=== PATIENT | male | born 1980 | race Caucasian/White ===

== ENCOUNTER 2019-08-20 15:33 | Observation (INO) ==
[2019-08-20] MEDS ORDERED: *HR* LORazepam 2 MG/ML VIAL IM ONE ×2 (15:54→17:16)
[2019-08-20 16:21] LABS: Basophils % 0.3 %; Eosinophils # 0.1 K/mcL (0.0-0.6); Eosinophils % 0.7 %; Hematocrit 42.4 % (37.5-50.1); Hemoglobin 14.8 g/dL (12.9-16.9); Immature Granulocytes % 0.2 % (0-4); Lymphocytes # 2.2 K/mcL (0.6-4.6); Lymphocytes % 24.7 %; Mean Corpuscular HGB Conc 34.9 g/dL (31.6-35.5); Mean Corpuscular Volume 91.8 fL (83.0-100.0); Mean Platelet Volume 9.3 fL (9.4-12.4); Monocytes % 11.9 %; Neutrophils # 5.4 K/mcL (1.6-8.9); Platelet Count 228 K/mcL (140-400); Red Blood Count 4.62 M/mcL (4.19-5.50); Red Cell Distribution Width 12.6 % (11.5-14.5); Segmented Neutrophils % 62.2 %; White Blood Count 8.7 K/mcL (4.3-11.1)
[2019-08-20 16:34] LABS: Acetaminophen < 10 mcg/mL (10-20); BUN/Creatinine Ratio 17 (6-26); Blood Urea Nitrogen 15 mg/dL (6-20); Calcium 9.7 mg/dL (8.6-10.3); Carbon Dioxide 24 mEq/L (23-29); Chloride 103 mEq/L (98-107); Ethanol < 10 mg/dL (Less than 10); Glucose 113 mg/dL (70-105); Osmolality,Calculated 286 (280-300); Potassium 3.2 mEq/L (3.5-5.1); Salicylate < 2.5 mg/dL (15.0-30.0); Sodium 137 mEq/L (136-145); eGFR For African Americans > 60 (> 60); eGFR For Non-African Americans > 60 (> 60)
[2019-08-20 17:34] LABS: Bilirubin,Urine Small (Negative); Blood,Urine Negative (Negative); Clarity,Urine Clear (Clear); Color,Urine Yellow (Yellow); Glucose,Urine (UA) Normal (Normal); Ketones,Urine 15 mg/dL (Negative); Leukocyte Esterase,Urine Small (Negative); Nitrite,Urine Negative (Negative); Protein,Urine 30 mg/dL (Neg-Trace); Specific Gravity,Urine > 1.030 (1.010-1.025)
[2019-08-20 17:37] LABS: Bacteria,Urine None Seen per hpf (None-Few); Hyaline Casts,Urine None Seen per lpf (None-Few); RBC,Urine 0-3 per hpf (0-3); Squamous Epithelial Cell,Urine Moderate per lpf (None-Few)
[2019-08-20 17:42] LABS: Amphetamine Screen,Urine Positive ng/mL (Cutoff=1000); Barbiturate Screen,Urine Negative ng/mL (Cutoff=200); Benzodiazepines Screen,Urine Negative ng/mL (Cutoff=200); Cannabinoid Screen,Urine Positive ng/mL (Cutoff = 50); Cocaine Screen,Urine Negative ng/mL (Cutoff= 300); Opiate Screen,Urine Negative ng/mL (Cutoff=300); Phencyclidine Screen,Urine Negative ng/mL (Cutoff=25)
[2019-08-20] MEDS ORDERED: hydrOXYzine pamoate 25 MG CAPSULE PO PRN (23:28)
[2019-08-20] MEDS ORDERED: QUEtiapine Fumarate 25 MG TABLET PO PRN (23:28)
[2019-08-20] MEDS ORDERED: Ibuprofen 400 MG TABLET PO PRN (23:28)
[2019-08-20] MEDS ORDERED: MOM Conc 10 ML UD.LIQ PO PRN (23:28)
[2019-08-20] MEDS ORDERED: *HR* LORazepam 1 MG TABLET PO PRN (23:28)
[2019-08-20] MEDS ORDERED: Mag Hydrox/Al Hydrox/Simeth 30 ML UDC PO PRN (23:28)
[2019-08-20] MEDS ORDERED: haloperidoL 5 MG TABLET PO PRN (23:28)
[2019-08-20] MEDS ORDERED: Haloperidol Lactate 5 MG/ML VIAL IM PRN (23:28)
[2019-08-20] MEDS ORDERED: *HR* LORazepam 2 MG/ML VIAL IM PRN (23:28)
[2019-08-21 10:13] VITALS: BP 117/77
== END 2019-08-21 11:15 | disposition home or self-care (01) ==
LOC: EMEROOARM 15:33 → 1ANU 23:20 → INTOOBSV 23:20 → 1ANU 08-21 00:30
PROVIDERS: ADMIT Psychiatry & Neurology Psychiatry; ATTEND Psychiatry & Neurology Psychiatry

== ENCOUNTER 2021-05-04 03:04 | Inpatient (IN) ==
[2021-05-04] MEDS ORDERED: Haloperidol Lactate 5 MG/ML VIAL IM ONE (03:49)
[2021-05-04 04:02] LABS: Basophils % 0.3 %; Eosinophils # 0.1 K/mcL (0.0-0.6); Eosinophils % 0.5 %; Hematocrit 46.7 % (37.5-50.1); Hemoglobin 16.1 g/dL (12.9-16.9); Immature Granulocytes % 0.4 % (0-4); Lymphocytes # 1.7 K/mcL (0.6-4.6); Lymphocytes % 15.1 %; Mean Corpuscular HGB Conc 34.5 g/dL (31.6-35.5); Mean Corpuscular Volume 95.7 fL (83.0-100.0); Mean Platelet Volume 9.3 fL (9.4-12.4); Monocytes % 8.6 %; Neutrophils # 8.4 K/mcL (1.6-8.9); Platelet Count 283 K/mcL (140-400); Red Blood Count 4.88 M/mcL (4.19-5.50); Red Cell Distribution Width 11.8 % (11.5-14.5); Segmented Neutrophils % 75.1 %; White Blood Count 11.1 K/mcL (4.3-11.1)
[2021-05-04 04:14] LABS: Bacteria,Urine Few per hpf (None-Few); Bilirubin,Urine Negative (Negative); Blood,Urine Negative (Negative); Clarity,Urine Ex.Turbid (Clear); Color,Urine Yellow (Yellow); Glucose,Urine (UA) Normal (Normal); Ketones,Urine Negative (Negative); Leukocyte Esterase,Urine Trace (Negative); Mucus,Urine Many per lpf (None-Few); Nitrite,Urine Negative (Negative); PH,Urine 6.5 pH Units (5.0-8.0); Protein,Urine 30 mg/dL (Neg-Trace); RBC,Urine 0-3 per hpf (0-3); Specific Gravity,Urine 1.029 (1.010-1.025)
[2021-05-04 04:20] LABS: Acetaminophen < 10 mcg/mL (10-20); BUN/Creatinine Ratio 16 (6-26); Blood Urea Nitrogen 16 mg/dL (6-20); Calcium 10.3 mg/dL (8.6-10.3); Carbon Dioxide 23 mEq/L (23-29); Chloride 99 mEq/L (98-107); Ethanol < 10 mg/dL (Less than 10); Glucose 132 mg/dL (70-105); Osmolality,Calculated 285 (280-300); Potassium 3.8 mEq/L (3.5-5.1); Salicylate < 2.5 mg/dL (15.0-30.0); Sodium 136 mEq/L (136-145); eGFR For African Americans > 60 (> 60); eGFR For Non-African Americans > 60 (> 60)
[2021-05-04 04:25] LABS: Amphetamine Screen,Urine Positive ng/mL (Cutoff=1000); Barbiturate Screen,Urine Negative ng/mL (Cutoff=200); Benzodiazepines Screen,Urine Negative ng/mL (Cutoff=200); Cannabinoid Screen,Urine Positive ng/mL (Cutoff = 50); Cocaine Screen,Urine Negative ng/mL (Cutoff= 300); Opiate Screen,Urine Negative ng/mL (Cutoff=300); Phencyclidine Screen,Urine Negative ng/mL (Cutoff=25)
[2021-05-04] MEDS ORDERED: *HR* LORazepam 2 MG/ML VIAL ONE (04:44)
[2021-05-04] MEDS ORDERED: *HR* LORazepam 2 MG/ML VIAL IM ONE (04:55)
[2021-05-04 05:35] LABS: Influenza A PCR Negative (Negative); Influenza B PCR Negative (Negative); Resp. Syncytial Virus PCR Negative (Negative)
[2021-05-04 05:50] LABS: SARS-CoV-2 by PCR (In House) Positive (Negative)
[2021-05-04] MEDS ORDERED: Ondansetron 4 MG/2 ML VIAL IVP PRN (07:34)
[2021-05-04] MEDS ORDERED: Naloxone 0.4 MG/ML INJ IVP PRN (07:34)
[2021-05-04] MEDS: Ipratropium 1 PUFF INHALER IH SCH ×4 (08:41→20:55)
[2021-05-04] MEDS: Gabapentin 400 MG CAPSULE PO SCH ×2 (17:52→20:12)
[2021-05-04] MEDS: traZODone 50 MG TABLET PO SCH (20:11)
[2021-05-05] MEDS: Ipratropium 1 PUFF INHALER IH SCH ×7 (00:02→23:31)
[2021-05-05] MEDS ORDERED: Nicotine 14 MG PATCH.TD24 TD SCH (01:30)
[2021-05-05 02:12] LABS: Alanine Aminotransferase 28 Units/L (7-52); Albumin 4.3 g/dL (3.5-5.7); Albumin/Globulin Ratio 1.5 (1.1-2.2); Alkaline Phosphatase 53 Units/L (34-104); Aspartate Amino Transferase 25 Units/L (13-39); BUN/Creatinine Ratio 17 (6-26); Bilirubin,Total 0.4 mg/dL (0.3-1.0); Blood Urea Nitrogen 16 mg/dL (6-20); Calcium 9.3 mg/dL (8.6-10.3); Carbon Dioxide 28 mEq/L (23-29); Chloride 103 mEq/L (98-107); Globulin 2.9 g/dL (2.4-3.5); Glucose 102 mg/dL (70-105); Osmolality,Calculated 283 (280-300); Potassium 3.8 mEq/L (3.5-5.1); Sodium 136 mEq/L (136-145); Total Protein 7.2 g/dL (6.4-8.9); eGFR For African Americans > 60 (> 60); eGFR For Non-African Americans > 60 (> 60)
[2021-05-05 02:27] LABS: Basophils % 0.6 %; Eosinophils # 0.2 K/mcL (0.0-0.6); Eosinophils % 2.3 %; Hematocrit 46.1 % (37.5-50.1); Hemoglobin 15.4 g/dL (12.9-16.9); Immature Granulocytes % 0.1 % (0-4); Lymphocytes # 2.4 K/mcL (0.6-4.6); Lymphocytes % 34.5 %; Mean Corpuscular HGB Conc 33.4 g/dL (31.6-35.5); Mean Corpuscular Hemoglobin 33.3 pg (28.0-33.3); Mean Corpuscular Volume 99.8 fL (83.0-100.0); Mean Platelet Volume 9.3 fL (9.4-12.4); Monocytes # 0.7 K/mcL (0.0-1.3); Monocytes % 9.9 %; Neutrophils # 3.7 K/mcL (1.6-8.9); Platelet Count 216 K/mcL (140-400); Red Blood Count 4.62 M/mcL (4.19-5.50); Red Cell Distribution Width 12.2 % (11.5-14.5); Segmented Neutrophils % 52.6 %; White Blood Count 7.1 K/mcL (4.3-11.1)
[2021-05-05] MEDS: Acetaminophen 325 MG TABLET PO PRN (04:10)
[2021-05-05] MEDS: *HR* Enoxaparin 40 MG/0.4 ML SYRINGE SQ SCH (06:35)
[2021-05-05] MEDS: Cholecalciferol (D-3) 1,000 UNIT (25MCG) TABLET PO SCH (08:31)
[2021-05-05] MEDS: lamoTRIgine 100 MG TABLET PO SCH (08:32)
[2021-05-05] MEDS: Acyclovir 200 MG CAPSULE PO SCH ×2 (08:32→20:13)
[2021-05-05] MEDS: Gabapentin 400 MG CAPSULE PO SCH ×3 (08:32→20:13)
[2021-05-05] MEDS: rOPINIRole 0.25 MG TABLET PO SCH (08:32)
[2021-05-05] MEDS ORDERED: QUEtiapine Fumarate 25 MG TABLET PO SCH (09:00)
[2021-05-05] MEDS: TENOFOV ALAFENAM PO SCH (09:03)
[2021-05-05] MEDS: EMTRICITABINE PO SCH (09:03)
[2021-05-05] MEDS: traZODone 50 MG TABLET PO SCH (20:12)
[2021-05-05] MEDS: QUEtiapine Fumarate 25 MG TABLET PO SCH (21:33)
[2021-05-05] MEDS: Nicotine 14 MG PATCH.TD24 TD SCH (21:34)
[2021-05-06 01:48] LABS: Basophils % 0.4 %; Eosinophils # 0.2 K/mcL (0.0-0.6); Hematocrit 46.4 % (37.5-50.1); Hemoglobin 15.4 g/dL (12.9-16.9); Immature Granulocytes % 0.3 % (0-4); Lymphocytes # 1.8 K/mcL (0.6-4.6); Lymphocytes % 23.8 %; Mean Corpuscular HGB Conc 33.2 g/dL (31.6-35.5); Mean Corpuscular Volume 99.6 fL (83.0-100.0); Mean Platelet Volume 9.5 fL (9.4-12.4); Monocytes # 0.6 K/mcL (0.0-1.3); Monocytes % 7.5 %; Platelet Count 193 K/mcL (140-400); Red Blood Count 4.66 M/mcL (4.19-5.50); White Blood Count 7.6 K/mcL (4.3-11.1)
[2021-05-06 02:05] LABS: BUN/Creatinine Ratio 15 (6-26); Blood Urea Nitrogen 13 mg/dL (6-20); Carbon Dioxide 25 mEq/L (23-29); Chloride 105 mEq/L (98-107); Glucose 115 mg/dL (70-105); Magnesium 1.9 mg/dL (1.6-2.6); Osmolality,Calculated 289 (280-300); Potassium 3.7 mEq/L (3.5-5.1); Sodium 139 mEq/L (136-145); eGFR For African Americans > 60 (> 60); eGFR For Non-African Americans > 60 (> 60)
[2021-05-06] MEDS: Ipratropium 1 PUFF INHALER IH SCH ×6 (03:12→23:08)
[2021-05-06] MEDS: *HR* Enoxaparin 40 MG/0.4 ML SYRINGE SQ SCH (06:25)
[2021-05-06] MEDS ORDERED: QUEtiapine Fumarate 25 MG TABLET PO SCH (09:00)
[2021-05-06] MEDS: lamoTRIgine 100 MG TABLET PO SCH (09:46)
[2021-05-06] MEDS: Gabapentin 400 MG CAPSULE PO SCH ×3 (09:46→20:14)
[2021-05-06] MEDS: TENOFOV ALAFENAM PO SCH (09:47)
[2021-05-06] MEDS: Cholecalciferol (D-3) 1,000 UNIT (25MCG) TABLET PO SCH (09:47)
[2021-05-06] MEDS: EMTRICITABINE PO SCH (09:47)
[2021-05-06] MEDS: Acyclovir 200 MG CAPSULE PO SCH ×2 (09:47→20:14)
[2021-05-06] MEDS: rOPINIRole 0.25 MG TABLET PO SCH (09:47)
[2021-05-06] MEDS: Nicotine 14 MG PATCH.TD24 TD SCH (20:13)
[2021-05-06] MEDS: QUEtiapine Fumarate 25 MG TABLET PO SCH (20:14)
[2021-05-06] MEDS: traZODone 50 MG TABLET PO SCH (20:14)
[2021-05-07 01:32] LABS: Basophils % 0.5 %; Eosinophils # 0.1 K/mcL (0.0-0.6); Eosinophils % 1.6 %; Hematocrit 41.1 % (37.5-50.1); Immature Granulocytes % 0.2 % (0-4); Lymphocytes # 1.8 K/mcL (0.6-4.6); Lymphocytes % 28.4 %; Mean Corpuscular HGB Conc 33.1 g/dL (31.6-35.5); Mean Corpuscular Hemoglobin 33.3 pg (28.0-33.3); Mean Corpuscular Volume 100.7 fL (83.0-100.0); Mean Platelet Volume 9.5 fL (9.4-12.4); Monocytes # 0.6 K/mcL (0.0-1.3); Monocytes % 9.4 %; Neutrophils # 3.7 K/mcL (1.6-8.9); Platelet Count 178 K/mcL (140-400); Red Blood Count 4.08 M/mcL (4.19-5.50); Red Cell Distribution Width 11.9 % (11.5-14.5); Segmented Neutrophils % 59.9 %; White Blood Count 6.2 K/mcL (4.3-11.1)
[2021-05-07 01:38] LABS: Hemoglobin 13.6 g/dL (12.9-16.9)
[2021-05-07 01:42] LABS: BUN/Creatinine Ratio 13 (6-26); Blood Urea Nitrogen 11 mg/dL (6-20); Calcium 8.7 mg/dL (8.6-10.3); Carbon Dioxide 26 mEq/L (23-29); Chloride 107 mEq/L (98-107); Glucose 101 mg/dL (70-105); Magnesium 1.7 mg/dL (1.6-2.6); Osmolality,Calculated 288 (280-300); Potassium 3.9 mEq/L (3.5-5.1); Sodium 139 mEq/L (136-145); eGFR For African Americans > 60 (> 60); eGFR For Non-African Americans > 60 (> 60)
[2021-05-07] MEDS: Ipratropium 1 PUFF INHALER IH SCH ×2 (03:19→07:43)
[2021-05-07] MEDS: *HR* Enoxaparin 40 MG/0.4 ML SYRINGE SQ SCH (05:11)
[2021-05-07] MEDS: rOPINIRole 0.25 MG TABLET PO SCH (09:20)
[2021-05-07] MEDS: Gabapentin 400 MG CAPSULE PO SCH ×3 (09:20→21:51)
[2021-05-07] MEDS: Cholecalciferol (D-3) 1,000 UNIT (25MCG) TABLET PO SCH (09:20)
[2021-05-07] MEDS: Acyclovir 200 MG CAPSULE PO SCH ×2 (09:20→21:52)
[2021-05-07] MEDS: lamoTRIgine 100 MG TABLET PO SCH (09:20)
[2021-05-07] MEDS: TENOFOV ALAFENAM PO SCH (09:21)
[2021-05-07] MEDS: EMTRICITABINE PO SCH (09:21)
[2021-05-07] MEDS ORDERED: Ipratropium 1 PUFF INHALER IH PRN (11:19)
[2021-05-07] MEDS: Acetaminophen 325 MG TABLET PO PRN (14:36)
[2021-05-07] MEDS: Nicotine 14 MG PATCH.TD24 TD SCH (21:50)
[2021-05-07] MEDS: traZODone 50 MG TABLET PO SCH (21:51)
[2021-05-07] MEDS: QUEtiapine Fumarate 25 MG TABLET PO SCH (21:51)
[2021-05-08] MEDS: *HR* Enoxaparin 40 MG/0.4 ML SYRINGE SQ SCH (06:23)
[2021-05-08] MEDS: EMTRICITABINE PO SCH (08:27)
[2021-05-08] MEDS: TENOFOV ALAFENAM PO SCH (08:27)
[2021-05-08] MEDS: lamoTRIgine 100 MG TABLET PO SCH (08:36)
[2021-05-08] MEDS: Acyclovir 200 MG CAPSULE PO SCH ×2 (08:36→21:08)
[2021-05-08] MEDS: Gabapentin 400 MG CAPSULE PO SCH ×3 (08:36→21:09)
[2021-05-08] MEDS: rOPINIRole 0.25 MG TABLET PO SCH (08:36)
[2021-05-08] MEDS: Cholecalciferol (D-3) 1,000 UNIT (25MCG) TABLET PO SCH (08:36)
[2021-05-08] MEDS: Acetaminophen 325 MG TABLET PO PRN ×2 (11:21→18:19)
[2021-05-08 19:51] LABS: Adenovirus Not Detected (Not Detect); Bordetella Pertussis Not Detected (Not Detect); Chlamydophila pneumoniae Not Detected (Not Detect); Coronavirus 229E Not Detected (Not Detect); Coronavirus HKU1 Not Detected (Not Detect); Coronavirus NL63 Not Detected (Not Detect); Coronavirus OC43 Not Detected (Not Detect); Human Metapneumovirus Not Detected (Not Detect); Human Rhinovirus/Enterovirus Not Detected (Not Detect); Influenza A Subtype 2009 H1 Not Detected (Not Detect); Influenza B Not Detected (Not Detect); Mycoplasma pneumoniae Not Detected (Not Detect); Parainfluenza Virus 1 Not Detected (Not Detect); Parainfluenza Virus 2 Not Detected (Not Detect); Parainfluenza Virus 3 Not Detected (Not Detect); Parainfluenza Virus 4 Not Detected (Not Detect); Respiratory Syncytial Virus Not Detected (Not Detect); SARS-CoV-2 Not Detected (Not Detect)
[2021-05-08] MEDS: traZODone 50 MG TABLET PO SCH (21:08)
[2021-05-08] MEDS: QUEtiapine Fumarate 25 MG TABLET PO SCH (21:09)
[2021-05-08] MEDS: Nicotine 14 MG PATCH.TD24 TD SCH (21:09)
[2021-05-09] MEDS: *HR* Enoxaparin 40 MG/0.4 ML SYRINGE SQ SCH (06:42)
[2021-05-09] MEDS: rOPINIRole 0.25 MG TABLET PO SCH (07:58)
[2021-05-09] MEDS: Gabapentin 400 MG CAPSULE PO SCH ×3 (07:59→20:54)
[2021-05-09] MEDS: Acyclovir 200 MG CAPSULE PO SCH ×2 (07:59→20:55)
[2021-05-09] MEDS: Cholecalciferol (D-3) 1,000 UNIT (25MCG) TABLET PO SCH (07:59)
[2021-05-09] MEDS: lamoTRIgine 100 MG TABLET PO SCH (07:59)
[2021-05-09] MEDS: TENOFOV ALAFENAM PO SCH (14:23)
[2021-05-09] MEDS: EMTRICITABINE PO SCH (14:23)
[2021-05-09] MEDS: hydrOXYzine pamoate 25 MG CAPSULE PO PRN (17:09)
[2021-05-09] MEDS: Nicotine 14 MG PATCH.TD24 TD SCH (20:53)
[2021-05-09] MEDS: traZODone 50 MG TABLET PO SCH (20:55)
[2021-05-09] MEDS: QUEtiapine Fumarate 25 MG TABLET PO SCH (20:57)
[2021-05-09] MEDS: Acetaminophen 325 MG TABLET PO PRN (20:59)
[2021-05-10] MEDS: TENOFOV ALAFENAM PO SCH (06:30)
[2021-05-10] MEDS: EMTRICITABINE PO SCH (06:30)
[2021-05-10] MEDS: *HR* Enoxaparin 40 MG/0.4 ML SYRINGE SQ SCH (06:30)
[2021-05-10 07:14] VITALS: BP 108/68; PULSE 98; TEMP 98.1; O2SAT 96
[2021-05-10] MEDS: hydrOXYzine pamoate 25 MG CAPSULE PO PRN (07:46)
[2021-05-10] MEDS: Acyclovir 200 MG CAPSULE PO SCH (07:47)
[2021-05-10] MEDS: lamoTRIgine 100 MG TABLET PO SCH (07:47)
[2021-05-10] MEDS: Gabapentin 400 MG CAPSULE PO SCH (07:48)
[2021-05-10] MEDS: rOPINIRole 0.25 MG TABLET PO SCH (07:48)
[2021-05-10] MEDS: Cholecalciferol (D-3) 1,000 UNIT (25MCG) TABLET PO SCH (07:48)
== END 2021-05-10 12:57 | DRG 751 ==
LOC: EMEROOARM 03:04 → 3BNU 03:04 → SUATTDRO 15:05 → 3BNU 16:44
PROVIDERS: ADMIT Family Medicine; ATTEND Pharmacist